=== PATIENT | female | born 1985 ===

== ENCOUNTER 2020-07-08 08:49 | Outpatient (CLI) | payer OTHER | END 2020-07-08 15:00 | disposition home or self-care (01) | LOC: LAB 08:49 | PROVIDERS: ATTEND Obstetrics & Gynecology Gynecologic Oncology | DX: D64.89 Other specified anemias (principal); R79.1 Abnormal coagulation profile; N39.0 Urinary tract infection, site not specified; I10 Essential (primary) hypertension; Z03.818 Encounter for observation for suspected exposure to other biological agents ruled out; R97.1 Elevated cancer antigen 125 [CA 125] ==

== ENCOUNTER 2020-07-11 08:45 | Inpatient (IN) | payer OTHER ==
[2020-07-11] MEDS ORDERED: COZAAR50 MG (10:14)
== END 2020-07-15 13:43 | disposition home or self-care (01) | DRG 741 ==
LOC: O/R 07-13 05:50 → OB/GYN 07-13 05:50 → SURH 07-13 07:00 → OB/GYN 07-13 11:21
PROVIDERS: ADMIT Obstetrics & Gynecology Gynecologic Oncology; ATTEND Obstetrics & Gynecology Gynecologic Oncology
PROC: 0UT70ZZ Resection of Bilateral Fallopian Tubes, Open Approach (ICD-10-PCS; 2020-07-13)
PROC: 07BC0ZX Excision of Pelvis Lymphatic, Open Approach, Diagnostic (ICD-10-PCS; 2020-07-13)
PROC: 0UT90ZZ Resection of Uterus, Open Approach (ICD-10-PCS; principal; 2020-07-13 07:00)
DX: C53.0 Malignant neoplasm of endocervix (principal)